=== PATIENT | male | born 1980 | race Caucasian/White ===

== ENCOUNTER 2022-08-27 12:08 | Emergency (ER) | payer BC, SELFPAY ==
--- NOTE | ~2022-08-27 | XR_ITS ---
EXAMINATION: XR knee RT min 4V DATE: 08/27/2022 13:03 INDICATION: Right knee pain. Fall. TECHNIQUE: 4 views of right knee were obtained. COMPARISON: None. FINDINGS: Bone alignment is normal. No fracture. There is mild osteoarthritis of medial and lateral c ompartments and moderate osteoarthritis of patellofemoral compartment. No knee joint effusion. IMPRESSION: 1. Moderate right knee osteoarthritis. Reviewed, dictated and finalized at location A. N PIPEFITTER
[2022-08-27 12:34] VITALS: BP 176/90; PULSE 80; RESP 15; TEMP 36.9; O2SAT 100
--- NOTE | 2022-08-27 14:46 | ED.LOWEXIN ---
HPI - Extremity Injury (Lower) General Chief Complaint: Extremity Injury, Lower Stated Complaint: Right knee injury at work yesterday Time Seen by Provider: 08/27/22 14:20 History of Present Illness HPI Narrative: Patient is a 42-year-old male presenting with right knee pain. Patient states that he has had intermittent right knee pain for several months now. States that he has a physically demanding job and feels that his joints have experienced a lot of wear and tear over the years. States that he was having some right knee pain and then yesterday he tripped on his left foot and he caught himself his right leg. States that he hyperextended that leg and since then his knee pain has been much worse. States that he was unable to ambulate on it yesterday due to the pain. States that this pain has started to improve and he was able to ambulate today but he wanted to be evaluated for further injuries. Denies weakness, numbness, redness, fevers or chills. Denies further injuries or concerns. Related Data Allergies Allergy/AdvReac Type Severity Reaction Status Date / Time No Known Allergies Allergy Unverified 08/27/22 12:08 Review of Systems Review of Systems: All systems reviewed & are unremarkable except as noted in HPI and below Exam Narrative: GENERAL: Well-appearing, well-nourished, and in no acute distress. HEAD: Normocephalic, atraumatic. EYES: PERRLA and EOMI. ENT: Nares clear, no rhinorrhea or epistaxis NECK: Supple. CHEST: No respiratory distress. HEART: Regular rate and rhythm. Normal peripheral pulses. ABDOMEN: Soft, nontender, nondistended EXTREMITIES: Normal range of motion. No overlying redness of the right knee, no obvious effusion SKIN: Warm, dry, no rash. NEURO: No focal deficits. Alert and oriented x3. PSYCH: Normal mood and affect. Course Vital Signs Vital signs: Vital Signs Temperature 98.4 F 08/27/22 12:34 Pulse Rate 80 08/27/22 12:34 Respiratory Rate 15 08/27/22 12:34 Blood Pressure 176/90 H 08/27/22 12:34 Pulse Oximetry 100 08/27/22 12:34 Oxygen Delivery Room Air 08/27/22 12:34 Temperature 98.4 F 08/27/22 12:34 Pulse Rate 80 08/27/22 12:34 Respiratory Rate 15 08/27/22 12:34 Blood Pressure 176/90 H 08/27/22 12:34 Pulse Oximetry 100 08/27/22 12:34 Oxygen Delivery Room Air 08/27/22 12:34 MDM - Extremity Injury (Lower) MDM Narrative Medical decision making narrative: Patient is a 42-year-old male presenting with right knee pain. Patient is hypertensive, otherwise vitals are within normal limits. Exam is remarkable for the above. Patient was able to ambulate in the department. He states that his pain has improved. X-ray shows moderate right knee osteoarthritis. There is no significant effusion. No evidence of infection. Discussed appropriate supportive care. Will provide with crutches for him to keep weight off of the knee for the next couple of days. Advised pain control with NSAIDs. We will provide number for orthopedic surgery for follow-up. Also advised PCP follow-up. Appropriate supportive care discussed. Patient voiced understanding and is agreeable with plan. Discharged in stable condition. Differential Diagnosis Differential diagnosis: Likely ankle sprain and strain, acute internal derangement of knee, fracture of femur and other Critical Care Time Critical Care Time Critical Care Time: No Discharge Plan Discharge Clinical Impression: Knee pain, Osteoarthritis of right knee Patient Disposition: Home, Self-Care Condition: Stable Instructions: Antibiotic Form, Knee Pain (ED) Additional Instructions: Your x-rays today show osteoarthritis of your right knee. Please use Tylenol and ibuprofen or naproxen for pain control. Please apply ice or heat as needed. You may use the crutches to keep weight off of the knee until your pain improves. Please follow-up with orthopedic surgery as well as your PCP. If your pain suddenly wo
== END 2022-08-27 15:41 | disposition home or self-care (01) ==
PROVIDERS: Emergency Provider Emergency Medicine; PCP Family Medicine
DX: M17.11 Unilateral primary osteoarthritis, right knee (principal)
CPT/HCPCS: 73564; 99283